=== PATIENT | male | born 1975 | race Caucasian/White ===

== ENCOUNTER 2017-01-24 09:36 | Emergency (ER) | payer OTHER ==
[2017-01-24] MEDS ORDERED: HALOPERIDOL LACT 5 MG/ML VIAL. ONE (09:42)
[2017-01-24 09:50] VITALS: BP 97/48
[2017-01-24] MEDS ORDERED: PROPOFOL 0 ML IV ONE (10:07)
--- NOTE | 2017-01-24 10:48 | RAD ---
Indication: Intubated. Technique: AP portable chest radiograph was obtained. No comparison is available. Findings: Endotracheal tube is directed down the right mainstem bronchus and the tube should likely be pulled back at least 3 cm. The lungs are relatively clear. The heart is not enlarged. Pulmonary vasculature is probably within normal limits allowing for portable technique. There is gastric distention. Leads overlie the patient. Endotracheal tube position was discussed with Dr. Escobar. Impression: Endotracheal tube directed down the right mainstem bronchus.
[2017-01-24] MEDS ORDERED: HALOPERIDOL LACT 5 MG/ML VIAL. IM ONE (11:00)
[2017-01-24] MEDS ORDERED: PROPOFOL 100 ML IV ONE (11:00)
[2017-01-24] MEDS ORDERED: LORAZEPAM 2 MG/ML VIAL IM ONE (11:00)
[2017-01-24] MEDS ORDERED: DIPHENHYDRAMINE 50 MG/ML VIAL IM ONE (11:00)
--- NOTE | 2017-01-24 11:33 | RAD ---
Indication: Seizure and fall, mental status change. Technique: Noncontrast CT head was obtained. CT cervical spine includes axial images and coronal and sagittal reformatted images. No comparison is available. One or more of the following individualized dose reduction techniques were utilized for this examination: 1. Automated exposure control 2. Adjustment of the mA and/or kV according to patient size 3. Use of iterative reconstruction technique Findings: Head: The ventricles are normal in size and configuration. There is no intracranial hemorrhage or extra-axial fluid collection. There is no mass effect or midline shift. Calcification noted in the right frontal region appears to be extra-axial, could represent a small meningioma or could be sequela of prior infection or trauma. It measures 5 mm in size. There is no evidence of an acute infarct. There is an air-fluid level in the right maxillary sinus. Otherwise, paranasal sinuses and mastoid air cells are clear. Cervical spine: There is no fracture or dislocation. Craniovertebral junction is unremarkable. There is fluid in the nasopharynx and oropharynx, appears to result in artifactual thickening of the prevertebral soft tissues. No definite true prevertebral soft tissue thickening is apparent. There is no definite canal or foraminal compromise. Lymph nodes along the cervical chains may be reactive. Dependent atelectasis in the included lung chin. Patient is intubated. Impression: 1. No acute intracranial findings. 2. Negative for fracture or dislocation in the cervical spine.
[2017-01-24] MEDS ORDERED: LEVETIRACETAM 500 MG/5 ML VIAL IV ONE (11:52)
[2017-01-24] MEDS ORDERED: LEVETIRACETAM 1,000 MG in IV NORMAL SALINE 100ML 100 ML IV ONE (12:00)
[2017-01-24] MEDS ORDERED: PROPOFOL 10,000 MCG/ML (20ML) VIAL IV ONE (12:00)
[2017-01-24] MEDS ORDERED: ROCURONIUM 50 MG/5 ML VIAL. ONE (12:00)
[2017-01-24] MEDS ORDERED: ROCURONIUM 50 MG/5 ML VIAL. IV ONE ×2 (12:00→12:30)
[2017-01-24] MEDS ORDERED: VECURONIUM 10 MG VIAL. IV ONE (12:00)
--- NOTE | 2017-01-24 12:15 | EKG ---
[address] [address] Test Date: 2017-01-24 Test Time: 12:10:38 Pat Name: KARLA SARAVIA Department: Room: Gender: M Final Assembly And Packing Supervisor: REINALDO : [id number] Requested By: MELISSA DE LEON Order Number: [id number] Reading MD: Measurements Intervals [place] Rate: 102 P: 64 MD: 154 QRS: 2 QRSD: 94 T: 26 QT: 360 QTc: 474 Interpretive Statements SINUS TACHYCARDIA OTHERWISE NORMAL ECG RI6.01 Unconfirmed report No previous ECG available for comparison
[2017-01-24 12:23] LABS: BASO % 0 % (0-3); EOS % 0 % (0-3); HEMATOCRIT 43.9 % (39.0-53.0); HEMOGLOBIN 14.9 g/dL (13.0-17.5); LYMPH # 0.9 x10^3/uL (1.0-4.8); LYMPH % 5 % (24-48); MEAN CORPUSCULAR HEMOGLOBIN 31 pg (25-35); MEAN CORPUSCULAR HGB CONC 34 g/dL (31-37); MEAN CORPUSCULAR VOLUME 90 fL (79-100); MONO # 0.7 x10^3/uL (0.0-1.1); MONO % 4 % (0-9); NEUT # 16.8 x10^3uL (1.8-7.7); NEUT % 91 % (31-73); PLATELET COUNT 221 x10^3/uL (140-400); RED BLOOD COUNT 4.86 x10^6/uL (4.30-5.70); WHITE BLOOD COUNT 18.5 x10^3/uL (4.0-11.0)
[2017-01-24 12:32] LABS: BARBITURATES NEG (NEG); BENZODIAZEPINES POS (NEG); CANNABINOIDS NEG (NEG); COCAINE NEG (NEG); METHADONE NEG (NEG); OPIATES NEG (NEG); PHENCYCLIDINE NEG (NEG)
[2017-01-24 12:33] LABS: AMPHETAMINE/METHAMPHETAMINE NEG (NEG)
[2017-01-24 12:37] LABS: AMORPHOUS SEDIMENT,UR PRESENT /HPF; BACTERIA,URINE FEW /HPF (0-FEW); BILIRUBIN,URINE NEG (NEG); CLARITY,URINE HAZY; COLOR,URINE YELLOW; GLUCOSE,URINE NEG (NEG); NITRITE,URINE NEG (NEG); SPERM,URINE PRESENT /HPF; SQUAMOUS EPITHELIAL CELL,UR OCC /LPF; UROBILINOGEN,URINE 0.2 mg/dL (0.2 mg/dL)
--- NOTE | 2017-01-24 12:41 | ED.ADGEN ---
Adult General Chief Complaint Chief Complaint Altered mental status HPI HPI Patient is a 41-year-old male inmate with known seizure disorder presents with 2 witnessed seizures this morning unknown duration with persistent agitation and combative state. Patient's reportedly been incarcerated for the past several days has not been getting out of his cell to take his recall twice daily. He is missed several doses. This morning, the patient was agitated and yelling at staff, and uncooperative with EMS upon arrival. Blood sugar was 122. Patient given 5 mg Versed IM to facilitate transfer. On ED, the patient is agitated and requiring point restraints. Patient has no other known medical problems or medications listed. Patient is primarily [place]-speaking. Review of Systems Review of Systems Review symptoms limited per altered mental status Current Medications Current Medications Current Medications Medications (Trade) Dose Ordered Sig/[place] Start Time Stop Time Status Last Admin Dose Admin Diphenhydramine HCl 50 mg 50 mg 1X ONCE 01/24/17 11:00 01/24/17 11:02 DC Haloperidol Lactate (Haldol) 5 mg 1X ONCE 01/24/17 11:00 01/24/17 11:02 DC Levetiracetam (Keppra) 500 mg STK-MED ONCE 01/24/17 11:52 01/24/17 11:53 DC Levetiracetam/ Sodium Chloride (Keppra/Iv Sodium Chloride 0.9% 100ml) 110 ml @ 400 mls/hr 1X ONCE 01/24/17 12:00 01/24/17 12:16 DC Lorazepam (Ativan) 2 mg 1X ONCE 01/24/17 11:00 01/24/17 11:02 DC Propofol 100 ml @ 0 mls/hr 1X ONCE 01/24/17 11:00 01/24/17 11:02 DC Rocuronium Soper (Zemuron) 50 mg 1X ONCE 01/24/17 12:30 01/24/17 12:31 DC Allergies Allergies Allergies Coded Allergies Type Severity Reaction Last Updated Verified No Known Drug Allergies 01/24/17 No Physical Exam Physical Exam Constitutional: Acute agitation with combative state. HENT: Normocephalic, atraumatic, bilateral external ears normal, oropharynx moist, no oral exudates, nose normal. Eyes: PERRLA, EOMI, conjunctiva normal. Neck: Normal range of motion, no tenderness, supple. Cardiovascular: Tachycardic. Lungs & Thorax: Respirations nonlabored, breath sounds clear. Abdomen: Bowel sounds normal, soft, no tenderness. Skin: Warm, dry. Extremities: No tenderness or deformities. Neurologic: Alert, agitated, spontaneous coordinated movement of all 4 extremities Current Patient Data Vital Signs Vital Signs Date Time Temp Pulse Resp B/P Pulse Ox O2 Delivery O2 Flow Rate FiO2 01/24/17 11:00 97 Ventilator Lab Results Laboratory Tests Test 01/24/17 12:10 Urine Opiates Screen Neg (NEG) Urine Methadone Screen Neg (NEG) Urine Barbiturates Neg (NEG) Urine Phencyclidine Screen Neg (NEG) Urine Amphetamine/Methamphetamine Neg (NEG) Urine Benzodiazepines Screen Pos (NEG) Urine Cocaine Screen Neg (NEG) Urine Cannabinoids Screen Neg (NEG) Urine Ethyl Alcohol Neg (NEG) EKG EKG EKG: Sinus rhythm, no acute ST-T wave changes.] Radiology/Procedures Radiology/Procedures Chest x-ray: Endotracheal tube in right mainstem rhonchus, retracted centimeter after report CT head/cervical spine: No acute disease per radiology report Intubation procedure note" Consent was not obtained as this was performed emergently Indication, seizure, agitation and need for airway protection Patient was connected to a cardiovascular and pulse oximetry monitors and placed on high oxygen. Approximately 200 mg of succinylcholine and 100 mg of rocuronium were administered. When the patient achieved adequate level of sedation, he was newly ventilated with [id number] following which a #8.0 endotracheal tube was inserted on first attempt without difficulty. Tube was secured at 25 cm at the lip. Post procedure chest x-ray reviewed right mainstem bronchus intubation. The tube was then retracted 3 cm. Patient tolerated the procedure hour without complications.] Impressions: Status epilepticus with prolonged postictal state Course & Med Decision Making Course & Med Decision Making Pertinent Labs and Imaging studies reviewed. (See chart for details) [Patient intubated for safety and airway protection, to facilitate ED been. CT head/cervical spine nonacute. Urine drug screen positive for benzodiazepines given prior to ED arrival. EKG, normal sinus rhythm. Dr. Tian call for hospitalist service at [facility] accepts patient to the ICU. Oncall neurology. notified. 1 Gm of Keppra given per recommendation.] Final Impression Final Impression [1. Status Epilepticus 2. Prolonged post-ictal state] Problems: Avinash Disclaimer Dragon Disclaimer This electronic medical record was generated, in whole or in part, using a voice recognition dictation system. MELISSA DE LEON DO Jan 24, 2017 10:35
[2017-01-24 12:47] LABS: ALBUMIN 4.6 g/dL (3.4-5.0); ALBUMIN/GLOBULIN RATIO 1.3 (1.0-1.7); CALCIUM 8.8 mg/dL (8.5-10.1); CREATININE 1.4 mg/dL (0.7-1.3); GFR 56.4; TOTAL BILIRUBIN 0.5 mg/dL (0.2-1.0); TOTAL PROTEIN 8.1 g/dL (6.4-8.2)
[2017-01-24] MEDS ORDERED: CEFTRIAXONE SODIUM 1 GM VIAL IV ONE (12:47)
[2017-01-24] MEDS ORDERED: IV NORMAL SALINE 100ML 100 ML ONE (12:48)
[2017-01-24 12:50] LABS: POTASSIUM 2.9 mmol/L (3.5-5.1)
[2017-01-24] MEDS ORDERED: IV NORMAL SALINE 1,000ML 1,000 ML ONE (12:55)
[2017-01-24 13:03] LABS: % BANDS 5 % (0-9); % BASOS 0 % (0-3); % EOS 1 % (0-5); % LYMPHS 5 % (24-48); % MONOS 3 % (0-10); % SEGS 86 % (35-66); PLT ESTIMATE ADEQUATE (ADEQUATE)
[2017-01-24] MEDS ORDERED: IV NORMAL SALINE 1,000ML 1,000 ML IV ONE (13:20)
--- NOTE | 2017-01-24 14:45 | ACF ---
Admission Criteria Forms SEIZURE Clinical Indications for Admission to Inpatient Care (Place 'X' for any and all applicable criteria): Admission is indicated for seizure and ANY ONE of the following(1)(2)(3)(4)(5): [ ]I. Inpatient admission required rather than observation care (Also use Seizure: Observation Care Criteria as appropriate) because of ANY ONE of the following: [ ]a) Altered mental status that is severe or persistent [ ]b) New focal neurologic deficit that is severe or persistent [ ]c) Metabolic disorder (eg, hypoglycemia, hyponatremia) that is severe or persistent [ ]d) Recurrent seizure [ ]e) Outpatient antiseizure regimen cannot be established (eg , patient cannot tolerate medication, initiation requires inpatient care) [ ]f) Need for ongoing intravenous infusion of antiseizure medication [ ]g) Cardiac arrhythmias of immediate concern [ ]h) Cerebral bleeding, hydrocephalus, or vasospasm monitoring (14) [ ]i) Increased intracranial pressure or cerebral edema monitoring (15) [ ]j) Other treatment or monitoring requiring inpatient admission [ X]II. Status epilepticus [A] or repetitive seizures not controlled with emergent treatment (6)(8) [ ]III. Brain disorder (eg, tumor, edema, and hydrocephalus) that requiring monitoring or intervention available only at inpatient level of care. [ ]IV. Brain insult (eg, severe trauma, stroke, drug toxicity, or withdrawal) that requires monitoring or intervention available only at inpatient level of care (10)(11) Extended stay beyond goal length of stay may be needed for (22) [ ]a) Complications of status epilepticus [ ]b) Refractory status epilepticus [ ]c) Etiology-specific therapy for conditions such as LICENSED PSYCHOLOGIST DIRECTOR infection, head injury,eclampsia, severe metabolic abnormalities, and brain tumor [ ]d) Residual neurologic damage, [ ]e) Initiation of significant change to anticonvulsant treatment [ ]f) Older patients (65 years or older) [ ]g) Patient requiring intubation (eg, to protect airway) The original [employer] content created by [facility] has been revised. The portions of the content which have been revised are identified through the use of italic text or in bold, and [facility] has neither reviewed nor approved the modified material. All other unmodified content is copyright [facility] [employer]. Please see references footnoted in the original [facility] edition 2016 Admission Criteria Met?: Yes DAVIS AMOR Jan 24, 2017 14:45
[2017-01-24 16:31] LABS: CARBAM < 0.5 mcg/mL (4.0-12.0)
[2017-01-24 17:10] LABS: BASE EXCESS ABG -5 mmol/L (-3-3); HCO3 ABG 21 mmol/L (21-28); PCO2 ABG 43 mmHg (35-46); PH ABG 7.32 (7.35-7.45); PO2 ABG 70 mmHg (75-108); SAT O2 ABG 91 % (92-99)
== END 2017-01-24 12:25 | disposition short-term general hospital (02) ==
LOC: ER 09:36 → EEVIPCON 09:36 → ER 12:25
DX: G40.801 Other epilepsy, not intractable, with status epilepticus (principal); R00.0 Tachycardia, unspecified
CPT/HCPCS: 31500; 36415; 36600; 51702; 70450; 71010; 72125; 80053; 80156; 80305; 80320; 81001; 82550; 82805; 84484; 85007; 85027; 93005; 94002; 99285; J2704; G0480; G0481

== ENCOUNTER → 2017-02-25 | Outpatient (CLI) | payer OTHER ==
[2017-02-26 14:10] LABS: TOTAL SERUM CREATININE 1.09 mg/dL (0.76-1.27); TOTAL URINE CREATININE 11.5 mg/dL (Not Estab.)
== END | disposition home or self-care (01) ==
LOC: SPEC 09:36 → EEVIPCON 09:36
PROVIDERS: ATTEND Family Medicine
DX: Z00.00 Encounter for general adult medical examination without abnormal findings (principal)
CPT/HCPCS: 36415; 82575

== ENCOUNTER → 2017-03-11 | Outpatient (CLI) | payer OTHER ==
[2017-03-11 11:23] LABS: BASO % 1 % (0-3); EOS # 0.9 x10^3/uL (0.0-0.7); EOS % 12 % (0-3); HEMATOCRIT 39.2 % (39.0-53.0); HEMOGLOBIN 13.6 g/dL (13.0-17.5); LYMPH # 2.4 x10^3/uL (1.0-4.8); LYMPH % 30 % (24-48); MEAN CORPUSCULAR HEMOGLOBIN 31 pg (25-35); MEAN CORPUSCULAR HGB CONC 35 g/dL (31-37); MEAN CORPUSCULAR VOLUME 88 fL (79-100); MONO # 0.6 x10^3/uL (0.0-1.1); MONO % 8 % (0-9); NEUT # 3.9 x10^3uL (1.8-7.7); NEUT % 50 % (31-73); PLATELET COUNT 226 x10^3/uL (140-400); RED BLOOD COUNT 4.43 x10^6/uL (4.30-5.70); RED CELL DISTRIBUTION WIDTH 13.3 % (11.5-14.5); WHITE BLOOD COUNT 7.8 x10^3/uL (4.0-11.0)
[2017-03-11 11:30] LABS: ALBUMIN 4.4 g/dL (3.4-5.0); ALBUMIN/GLOBULIN RATIO 1.3 (1.0-1.7); CALCIUM 8.8 mg/dL (8.5-10.1); CREATININE 1.1 mg/dL (0.7-1.3); POTASSIUM 4.4 mmol/L (3.5-5.1); TOTAL BILIRUBIN 0.6 mg/dL (0.2-1.0); TOTAL PROTEIN 7.9 g/dL (6.4-8.2)
[2017-03-11 11:33] LABS: GFR 74.5
[2017-03-11 14:26] LABS: CHOLESTEROL 235 mg/dL (0-200); HDLC 34 mg/dL (40-60); TRIGLYCERIDES 587 mg/dL (0-150); VLDLC 117 mg/dL (0-40)
== END | disposition home or self-care (01) ==
LOC: SPEC 11:04
PROVIDERS: ATTEND Preventive Medicine Occupational Medicine
DX: Z00.00 Encounter for general adult medical examination without abnormal findings (principal)
CPT/HCPCS: 36415; 80053; 80061; 84484; 85027